=== PATIENT | male | born 1990 | race Hispanic/Latino ===

== ENCOUNTER 2018-07-18 21:27 | Emergency (ER) | payer BC ==
[2018-07-18 21:33] VITALS: O2SAT 98
--- NOTE | 2018-07-18 22:12 | ED PDOC ---
HPI: Psych/Substance Abuse Time Seen by Provider: 07/18/18 21:35 Chief Complaint (Nursing): Alcohol Ingestion Chief Complaint (Provider): ETOH History Per: Patient, EMS Additional Complaint(s): 28 y/o male brought in by EMS for evaluation of alcohol intoxication. Patient states he was outside his apartment but did not have the keys to get in. Patient admits to drinking tonight; states he tripped and scraped left ankle and forearm. Denies head injury, LOC, headache, dizziness, nausea/vomiting. Past Medical History Reviewed: Historical Data, Nursing Documentation, Vital Signs Vital Signs: Last Vital Signs Temp 98.0 F 07/18/18 21:28 Pulse 114 H 07/18/18 21:28 Resp 16 07/18/18 21:28 BP 125/94 H 07/18/18 21:28 Pulse Ox 98 07/18/18 21:28 Primary Care Provider: FAMILY PROVIDER,NO - Medical History PMH: No Chronic Diseases - Surgical History Surgical History: No Surg Hx - Family History Family History: States: No Known Family Hx - Allergies Allergies/Adverse Reactions: Allergies Allergy/AdvReac Type Severity Reaction Status Date / Time strawberry Allergy RASH Verified 07/18/18 21:28 Review of Systems ROS Statement: Except As Marked, All Systems Reviewed And Found Negative Musculoskeletal: Positive for: Foot Pain (left ankle) Physical Exam - Reviewed Nursing Documentation Reviewed: Yes Vital Signs Reviewed: Yes - Physical Exam Appears: Positive for: Well, Non-toxic, No Acute Distress Head Exam: Positive for: ATRAUMATIC, NORMAL INSPECTION, NORMOCEPHALIC Skin: Positive for: Normal Color Eye Exam: Positive for: EOMI, PERRL ENT: Positive for: Normal ENT Inspection Cardiovascular/Chest: Positive for: Regular Rate, Rhythm Respiratory: Positive for: Normal Breath Sounds Gastrointestinal/Abdominal: Positive for: Normal Exam Extremity: Positive for: Normal ROM, Tenderness (left medial malleolus with overylying superficial abrasion. FROM. DIstal NV/motor intact), Capillary Refill <2 Sec, Other (abrasions mid left forearm; no tenderness, edema, deformity noted. FROM) Neurological/Psych: Positive for: Awake, Alert, Oriented (x3) - ECG O2 Sat by Pulse Oximetry: 98 - Other Rad xray left ankle X-Ray: Viewed By Me X-Ray Interpretation: no acute findings - Progress ED Course And Treament: -accucheck -left ankle xray 1:30 Patient sleeping; no distress 3:00 Patient awake, alert, oriented x3. Ambulating steady gait Patient denies physical complaints. Patient wounds cleaned with NS, bacitracin applied, KATHLEEN wrap applied to left ankle Advised RICE, NSAIDs PRN pain Follow up podiatry for persistent symptoms Return precautions given Disposition - Clinical Impression Clinical Impression: Alcohol intoxication, Left ankle injury, Abrasion of left forearm - Patient ED Disposition Is Patient to be Admitted: No Counseled Patient/Family Regarding: Studies Performed, Diagnosis, Need For Followup - Disposition Referrals: Podiatry Clinic [Outside] Disposition: Routine/Home Disposition Time: 03:00 Condition: IMPROVED Instructions: Skin Abrasions, Alcohol Use - When Is Drinking a Problem?
[2018-07-19 03:30] VITALS: BP 146/92; PULSE 78; RESP 17; TEMP 98.2
--- NOTE | 2018-07-19 08:11 | RAD ---
Date of service: 07/18/2018 PROCEDURE: Left Ankle Radiographs. HISTORY: injury medial aspect COMPARISON: None available. TECHNIQUE: 3 views obtained. FINDINGS: BONES: No evidence of acute displaced fracture nor dislocation. There is a small elliptical shaped corticated density within the soft tissues subjacent to the inferior tip of the lateral malleolus and a tiny corticated density within the soft tissues in adjacent to the inferior tip of the medial malleolus. Findings probably represent old posttraumatic mineralization JOINTS: Joint spaces preserved with no significant osteoarthritis.. No osteoarthritis. Ankle mortise maintained. Talar dome intact SOFT TISSUES: There appears to be some minor soft tissue swelling over the mild medial and lateral malleoli OTHER FINDINGS: None. IMPRESSION: No acute fractures. Tiny corticated bony densities within the soft tissues subjacent to the inferior margins of the medial lateral malleolus likely representing all posttraumatic mineralization changes.
== END 2018-07-19 03:11 | disposition home or self-care (01) ==
LOC: H.ER 21:27
DX: F10.129 Alcohol abuse with intoxication, unspecified (principal); S99.912A Unspecified injury of left ankle, initial encounter; S50.812A Abrasion of left forearm, initial encounter; W19.XXXA Unspecified fall, initial encounter; Y92.89 Other specified places as the place of occurrence of the external cause